=== PATIENT | male | born 1985 | race Caucasian/White ===

== ENCOUNTER 2019-04-05 20:37 | Emergency (ER) | payer MEDICARE ==
[~2019-04-05] VITALS: Ht 172.7 cm; Wt 95.3 kg
== END 2019-04-05 21:31 | disposition home or self-care (01) ==
LOC: ED 20:37
DX: S61.250A Open bite of right index finger without damage to nail, initial encounter (principal); W55.51XA Bitten by raccoon, initial encounter; Y93.89 Activity, other specified; Y92.89 Other specified places as the place of occurrence of the external cause; Y99.8 Other external cause status